=== PATIENT | male | born 1945 | race Caucasian/White ===

== ENCOUNTER 2019-03-21 10:49 | Outpatient (CLI) | payer MEDICARE, OTHER ==
[~2019-03-21] VITALS: Ht 177.8 cm; Wt 90.9 kg
--- NOTE | ~2019-03-21 | HEMODYNAMI ---
PATIENT:MARY PAYAN MEDICAL RECORD: [id number] : 41 LOCATION:D.CAT ADMISSION DATE: 03/21/19 Generatedon:03/21/201913:53 Patient name: MARY PAYAN Patient #: [id number] SSN: [id number] : 1945 Date of study: 03/21/2019 Page: Of Hemodynamic Procedure Report Patient Data Patient Demographics Procedure consent was obtained First Name: MARY Gender: Male Last Name: SCHUYLER : 1945 Middle Initial: W Age: 74 year(s) Patient #: [id number] Race: SSN: [id number] Additional ID: [id number] Contact details Address: [address] [place] [address] State: [place] City: [place] Zip code: [address] Past Medical History Allergies: No known allergies Admission Admission Data Admission Date: 03/21/2019 Admission Time: 10:49 Arrival Date: 03/21/2019 Arrival Time: 0:00 Admit Source: Other Insurance Payor: Medicare [facility] #: [id number] Height (in.): 70.08 BSA: 2.09 (m2) Height (cm.): 178 BMI: 28.72 (kg/m2) Weight (lbs.): 200.62 Weight (kg.): 91 Lab Results Lab Result Date: 03/21/2019 Lab Result Time: 0:00 Biochemistry Name Units Result Min Max BUN mg/dl 19 --(----)*- 7 18 Creatinine mg/dl 1.3 --(---*)-- 0.6 1.3 eGFR ml/min 57 *-(----)-- 90 120 NONAFRICAN CBC Name Units Result Min Max Hemoglobin g/dl 13.4 -*(----)-- 13.5 17.5 Procedure Procedure Types Cath Procedure Diagnostic Procedure [facility] w/Coronaries Sedation Charges Moderate Sedation up to 15 minutes PCI Procedure Coronary Stent Coronary Stent Initial Procedure Description Procedure Date Procedure Date: 03/21/2019 Procedure Start Time: 13:24 Procedure End Time: 13:52 Procedure Staff Name Function Von Love MD Performing Physician Audrey George RT Monitor Keyonna Feldman RT Monitor Robert Longoria RN Nurse Monica Rushing RT Scrub Procedure Data Cath Procedure Fluoroscopy Diagnostic fluoroscopy Total fluoroscopy Time: 4.8 time: 4.8 min min Diagnostic fluoroscopy Total fluoroscopy dose: 862 dose: 862 mGy mGy Contrast Material Contrast Material Type Amount (ml) Isovue 300 118 Entry Location Entry Primary Successful Side Size Upsize Upsize Entry Closure Succes sful Closure Location (Fr) 1 (Fr) 2 (Fr) Remarks Device Remarks Femoral Right 5 Fr 6 Fr Exoseal artery Short Estimated blood loss: 10 ml Diagnostic catheters Device Type Used For End Catheter Placement MULTIPACK JL 4.0 5Fr Left Coronary catheter Angiography MULTIPACK 3DRC 5Fr Right Coronary catheter Angiography MULTIPACK Pigtail 5 Fr LV Angiography catheter Procedure Complications No complications Procedure Medications Medication Administration Route Dosage 0.9% NaCl I.V. 100 ml/hr Oxygen etCO2 Nasal cannula 2 l/min Heparin Flush Bag added to field 2 bags (1000units/500ml NS) Lidocaine 2% added to field 20 Versed I.V. 1 mg Fentanyl I.V. 50 mcg Versed I.V. 1 mg Fentanyl I.V. 50 mcg Heparin Bolus I.V. 5000 units Integrilin (Bolus I.V. 8.5 ml 2mg/ml) Integrilin (Bolus wasted 1.5 ml 2mg/ml) Plavix P.O. 600 mg Hemodynamics Rest BSA: 2.09 (m2) HGB: 13.4 (g/dl) O2 Consumption: Estimated: 234.27 (ml/min) O2 Co nsumption indexed: Estimated:112.09 (ml/min/m) Heart Rate: 63 (bpm) Pressure Samples Time Site Value (mmHg) Purpose Heart Use Rate(bpm) 13:30 LV 113/16,20 Snapshot 75 13:31 AO 110/73(90) Pullback 74 13:31 LV 91/14,8 Pullback 74 Gradients Valve Time Site 1 Site 2 Mean SEP/DFP Peak To Heart Use (mmHg) (sec/min) Peak Rate (mmHg) (bpm) Aortic 13:31 LV AO 0 74 91/14,8 110/73(90) Calculations Valve P-P Mean Valve Index Valve Source Name Gradient Area Flow (cm2) Aortic 0 0 Snapshots Pre Cath Intra NCS Post Cath Vital Signs Time Heart Resp SPO2 etCO2 NIBP (mmHg) Rhythm Pain Sedation Rate (ipm) (%) (mmHg) Status Level (bpm) 13:08:00 62 19 99 0 171/86(125) NSR 0 (11) 10(A) , No pain 13:13:21 64 13 99 0 168/75(138) NSR 0 (11) 10(A) , No pain 13:17:52 72 14 98 0 170/95(152) NSR 0 (11) 10(A) , No pain 13:22:16 76 14 94 35.9 132/76(105) NSR 0 (11) 10(A) , No pain 13:26:36 65 12 95 30.7 144/75(120) NSR 0 (11) 10(A) , No pain 13:30:56 75 14 93 19.4 121/77(97) NSR 0 (11) 9(A) , No pain 13:35:04 73 10 93 26.2 121/80(99) NSR 0 (11) 9(A) , No pain 13:39:24 73 10 94 41.2 121/60(92) NSR 0 (11) 9(A) , No pain 13:43:36 73 11 95 41.2 126/74(94) NSR 0 (11) 10(A) , No pain 13:47:52 73 10 96 27 144/80(111) NSR 0 (11) 10(A) , No pain Medications Time Medication Route Dose Verified Delivered Reason Notes Effectiveness by by 13:20:13 0.9% NaCl I.V. 100 Robert Robert Per physician ml/hr Von Longoria RN RN 13:20:23 Oxygen etCO2 2 Robert Robert for low 02 sats Nasal l/min Von Longoria cannula RN RN 13:20:33 Heparin Flush added 2 Robert Robert used for Bag to bags Von Longoria procedure (1000units/500ml field CHUNG RN NS) 13:20:45 Lidocaine 2% added 20ml Robert Robert for local to vial Von Longoria anesthetic field CHUNG RN 13:21:06 Versed I.V. 1 mg Robert Robert for sedation Von Longoria RN RN 13:21:14 Fentanyl I.V. 50 Robert Robert for sedation mcg Von Longoria RN RN 13:25:40 Versed I.V. 1 mg Robert Robert for sedation Von Longoria RN RN 13:25:46 Fentanyl I.V. 50 Robert Robert for sedation mcg Von Longoria RN RN 13:36:04 Heparin Bolus I.V. 5000 Robert Robert for units Von Longoria anticoagulation RN RN 13:36:22 Integrilin I.V. 8.5 Robert Robert for (Bolus 2mg/ml) ml Von Longoria antiplatelet RN RN therapy 13:36:33 Integrilin wasted 1.5 Robert Robert to sharp's (Bolus 2mg/ml) ml Von Longoria RN RN 13:48:18 Plavix P.O. 600 Robert Robert for mg Von Longoria antiplatelet RN RN therapy Procedure Log Time Note 12:45:48 Informed consent obtained and on chart 12:46:13 Arrival Date: 03/21/2019 12:00:00 AM 12:47:07 Admit Source: Other 12:47:11 Insurance Payor : Medicare 12:48:53 Patient Height : 70.08 inches 12:48:58 Patient Weight : 200.62 lbs 12:49:48 Lab Result : eGFR NONAFRICAN 57 ml/min 12:49:48 Lab Result : Hemoglobin 13.4 g/dl 12:49:48 Lab Result : BUN 19 mg/dl 12:49:48 Lab Result : Creatinine 1.3 mg/dl 12:52:03 Procedure Status Elective Heart Cath (OP). 12:52:39 Patient allergic to No known allergies 12:56:20 Diagnostic Cath Status : Elective 12:56:42 Keyonna Feldman RT(R) (CV) sent for patient. Start room use. 12:56:45 Time tracking: Regular hours (M-F 7:00 - 5:00) 12:56:52 Plan of Care:Hemodynamics will remain stable., Cardiac rhythm will remain stable., Comfort level will be maintained., Respiratory function will remain adequate., Patient/ family verbilizes understanding of procedure., Procedure tolerated without complication., Recovers from procedure without complications.. 12:57:15 ACC Patient presents with Stable Angina CCS Anginal Class 3--Marked limitation of physical activity, angina occurs with ordinary activity.. 12:58:04 H&P Date Dictated: 03/21/2019 H&P Addendum completed by physician on da y of procedure. (MUST COMPLETE FOR ALL OUTPATIENTS), New H&P dictated by physician.. 12:58:07 Pre-procedure instructions explained to patient. 12:58:08 Pre-op teaching completed and patient verbalized understanding. 12:58:13 Family in patients room. 12:58:16 Patient NPO since Midnight. 12:59:41 Patient received from Pre/Post Procedure Room to CCL 1 Alert and oriented. Tansferred to table in Supine position. 12:59:44 Warm blankets applied, and freddie hugger turned on for patient comfort. 12:59:45 Correct patient and procedure confirmed by team. 12:59:48 ECG and BP/O2 sat monitors applied to patient. 13:06:34 Vital chart was started 13:10:40 ACCPatient has been prescribed/administered the following anti-anginal medication within the last 2 weeks: None 13:10:44 Baseline sample Acquired. 13:10:50 Rhythm: sinus rhythm 13:11:07 Full Disclosure recording started 13:11:08 - 13:11:13 Is the patient allergic to Iodine/contrast media? No. 13:11:22 Is patient on blood thinner?No 13:11:26 Patient diabetic? No. 13:11:28 ----Pre-sedation anethsthesia assessment.---- 13:11:32 Previous problem with sedation/anesthesia? No ? 13:11:38 Snore? Yes 13:12:24 Sleep apnea? No 13:12:27 Deviated septum? No 13:12:29 Opens mouth fully? Yes 13:12:30 Sticks out tongue? Yes 13:12:34 Airway obstruction? No ? 13:12:40 Dentures? Yes in tight 13:12:59 Modified Tone's test Radial failed. 13:13:21 Patient pain scale 0/10 ?. 13:13:30 IV patent on arrival in left forearm with 0.9% NaCl at O. 13:13:38 Lab results completed and on chart. 13:14:34 Stress Test: yes; abnormal possible infarct with scarring and ischemia 13:14:41 Right groin area was prepped with chlora-prep and draped in sterile fashion 13:14:44 Alarms reviewed by R. N. 13:14:44 Sharps counted by scrub and verified by R.N. 13:14:52 Use device set Femoral Dx 13:14:55 ACIST Syringe (25728) opened to sterile field. 13:14:55 Bag Decanter (2002S) opened to sterile field. 13:14:56 Medline Cath Pack ([id number]) opened to sterile field. 13:14:58 ACIST Hand Control (57440) opened to sterile field. 13:15:00 ACIST Manifold (53163) opened to sterile field. 13:15:01 DIAGNOSTIC Multipack 5Fr catheter set (GR4670) opened to sterile field. 13:15:02 Tegaderm 4 x 4 (1626W) opened to sterile field. 13:15:06 SHEATH 5FR Bangs (AIA406) opened to sterile field. 13:15:07 EMERALD Guide Wire (015-897) opened to sterile field. 13:19:17 Risk of Mortality: 0.1 13:19:23 Risk of blood transfusion: 0.1 13:19:28 Risk of FELIPE: 0.7 13:19:39 Physician arrived 13:19:40 --------ALL STOP TIME OUT------ 13:19:42 Final Timeout: patient, procedure, and site verified with staff and physician. All members of the team are in agreement. 13:19:44 Right groin site verified by team. 13:19:49 Fire Safety Assessment: A--An alcohol-based skin anteseptic being used preoperatively., C--Open oxygen or nitrous oxide is being used., D--An ESU, laser, or fiber-optic light is being used. 13:19:54 Physical assessment completed. ASA score P 2 - A patient with mild systemic disease as per Von Love MD. 13:20:03 3a) 45-59 Moderately reduced kidney function. 13:20:13 0.9% NaCl 100 ml/hr I.V. was administered by Robert Longoria RN; Per physician; Verbal order read back and verified. 13:20:15 Maximum allowable contrast dose (3.7 X eGFR X 0.75)158 ml. 13:20:20 Sedation plan: IV Moderate Sedation Medication:Versed, Fentanyl 13:20:23 Oxygen 2 l/min etCO2 Nasal cannula was administered by Robert Longoria RN; for low 02 sats; Verbal order read back and verified. 13:20:33 Heparin Flush Bag (1000units/500ml NS) 2 bags added to field was administered by Robert Longoria RN; used for procedure; Verbal order read back and verified. 13:20:35 Zero performed for pressure channel P1 13:20:45 Lidocaine 2% 20ml vial added to field was administered by Robert Longoria RN; for local anesthetic; Verbal order read back and verified. 13:21:06 Versed 1 mg I.V. was administered by Robert Longoria RN; for sedation; Verbal order read back and verified. 13:21:14 Fentanyl 50 mcg I.V. was administered by Robert Longoria RN; for sedation; Verbal order read back and verified. 13:24:38 Procedure started. 13:24:54 Local anesthetic to right femoral artery with Lidocaine 2% by Von Shanks MD.INITIAL ACCESS ONLY 13:25:35 A 5 Fr sheath was inserted into the Right Femoral artery 13:25:40 Versed 1 mg I.V. was administered by Robert Longoria RN; for sedation; Verbal order read back and verified. 13:25:46 Fentanyl 50 mcg I.V. was administered by Robert Longoria RN; for sedation; Verbal order read back and verified. 13:25:59 A MULTIPACK JL 4.0 5Fr catheter was advanced over the wire and used for Left Coronary Angiography. 13:26:35 LCA angiography performed. 13:26:52 Injector settings: Ml/sec: 3, Volume: 6, 13:27:42 Catheter removed. 13:28:10 A MULTIPACK 3DRC 5Fr catheter was advanced over the wire and used for Right Coronary Angiography. 13:28:58 RCA angiography performed. 13:29:02 Injector settings: Ml/sec: 3, Volume: 6, 13:29:29 ACCDominant side:Right 13:29:32 Catheter removed. 13:29:52 A MULTIPACK Pigtail 5 Fr catheter was advanced over the wire and used for LV Angiography. 13:30:29 LV hemodynamics recorded. 13:30:44 LV gram done using REDDY 13:30:49 Injector settings: Ml/sec: 10, Volume: 20, 13:31:27 EF : 55 % 13:31:29 Catheter removed. 13:31:31 Proceeding to intervention. 13:31:52 INFLATOR Merit BasixCompak (RI6832) opened to sterile field. 13:32:01 SHEATH 6FR Bangs (YHE915) opened to sterile field. 13:32:09 WHISPER 300cm guide wire ([id number]) opened to sterile field. 13:32:20 GUIDE 6FR HS I catheter (LA6HSI) opened to sterile field. 13:32:44 Sheath upsized to a 6 Fr Short. 13:32:54 6 Fr hs1 guide catheter was inserted over the wire 13:33:30 Pre PCI Site: [facility] mRCA has 80% stenosis. 13:33:40 whisper wire advanced. 13:36:04 Heparin Bolus 5000 units I.V. was administered by Robert Longoria RN; for anticoagulation; Verbal order read back and verified. 13:36:04 Wire advanced across lesion. 13:36:22 Integrilin (Bolus 2mg/ml) 8.5 ml I.V. was administered by Robert Longoria RN; for antiplatelet therapy; Verbal order read back and verified. 13:36:33 Integrilin (Bolus 2mg/ml) 1.5 ml wasted was administered by Robert Longoria RN; to sharp's; Verbal order read back and verified. 13:38:03 Inflate balloon Inflation number: 1 A EMERGE OTW 2.0 x 20 balloon ([id number]) was prepped and advanced across the Dist RCA , then inflated to 12 KACI for 0:20 (min:sec) . 13:39:03 Balloon removed over the wire. 13:42:59 Place stent Inflation Number: 1 A HEATHER OTW 3.5 x 12 stent ([id number]) was prepped and advanced across the Mid RCA . The stent was deployed at 14 KACI for 0:10 (min:sec) . 13:43:22 Stent catheter was removed intact over wire. 13:43:44 EXOSEAL 6Fr (EX600) opened to sterile field. 13:44:02 ACT drawn and resulted at 216 seconds. (normal therapeutic range 180-24 0 seconds). 13:44:22 Wire removed. 13:44:22 Guide catheter removed. 13:44:37 Sheath removed intact; hemostasis achieved with Exoseal to the Right Femoral artery. 13:44:40 Procedure ended.(Physican Out) 13:45:15 Contrast amount:Isovue 300 118ml. 13:45:19 Maximum allowable dose exceeded? No. 13:45:41 Fluoroscopy time 04.80 minutes. 13:45:50 Fluoroscopy dose: 862 mGy 13:45:50 Flurop Dose total: 862 13:45:58 Dose Area Product 33658 mGy/cm. 13:46:01 Sharps counted by scrub and verified by R.N. 13:46:05 Insertion/operative site no bleeding no hematoma. 13:46:11 Post-op/insertion site Right Femoral artery dressed using a 4 x 4 and Tegaderm. 13:46:16 Post right femoral artery:stable 13:46:19 Post Procedure Pulses reassessed and unchanged 13:46:24 Post-procedure physical assessment completed. ASA score P 2 - A patient with mild systemic disease as per Von Love MD. 13:46:30 Post procedure rhythm: unchanged. 13:46:33 Estimated blood loss: 10 ml 13:46:36 Post procedure instruction explained to patient.Patient verbalizes understanding. 13:46:37 Patient needs reinforcement of post procedure teaching. 13:47:41 Procedure type changed to Cath procedure, Diagnostic procedure, [facility], C w/Coronaries, Sedation Charges, Moderate Sedation up to 15 minutes, PCI procedure, Coronary Stent, Coronary Stent Initial 13:47:46 Procedure and supply charges have been captured, reviewed, submitted an d are correct. 13:48:18 Plavix 600 mg P.O. was administered by Robert Longoria RN; for antiplatelet therapy; Verbal order read back and verified. 13:48:41 Procedure Complication : No complications 13:49:47 Vital chart was stopped 13:49:52 [facility] Findings: MVD- PCI performed (see procedure note) 13:49:57 Operative report dictated upon procedure completion. 13:49:58 See physician's report for complete and final results. 13:50:00 Report given to Pre/Post Procedure Room. 13:50:05 Patient transfered to Pre/Post Procedure Room with Stretcher. 13:51:25 ACC-PCI Only Patient was given prescriptions, or instructed by Von Love MD to start/continue the following medications upon discharge: Plavix 13:52:11 Procedure ended. 13:52:11 Full Disclosure recording stopped 13:52:14 End room use (Document Last) Intervention Summary Intervention Notes Time ActionType Lesion and Equipment Action# Pressure Duration Attributes Used 13:38:03 Inflate Dist RCA EMERGE OTW 1 12 00:20 balloon 2.0 x 20 balloon ([id number]) 13:42:59 Place stent Mid RCA HEATHER OTW 3.5 1 14 00:10 x 12 stent ([id number]) Device Usage Item Name Manufacture Quantity Catalog Number Hospital Part Current M inimal Lot# / Charge Number Stock Stock Serial# Code ACIST Syringe Acist 1 15153 863181 388951 765640 2 0 (84589) Medical Systems Inc Bag Decanter Microtek 1 2002S 819611 04769 993108 5 (2001S) Medical Inc. Medline Cath Medline 1 [id number] 075401 20556 424446 5 Pack ([id number]) ACIST Hand Acist 1 35593 143108 555294 603404 5 Control Medical (71206) Systems Inc ACIST Acist 1 97409 221879 777097 310985 5 Manifold Medical (04658) Systems Inc DIAGNOSTIC Cardinal 1 [id number] 885757 64535 816284 3 0 Multipack 5Fr Health catheter set (HL6341) Tegaderm 4 x 3M 1 1626W 299526 288986 564229 5 4 (1626W) SHEATH 5FR Terumo 1 BXO880 404503 661285 869247 5 Bangs (QVG568) EMERALD Guide Cardinal 1 502-455 765946 703228 470537 5 Wire Health (360-643) MULTIPACK JL Cardinal 1 347927 5 4.0 5Fr Health catheter MULTIPACK Cardinal 1 054010 5 3DRC 5Fr Health catheter MULTIPACK Cardinal 1 951811 5 Pigtail 5 Fr Health catheter INFLATOR Merit 1 AD7738 174153 828289 039769 1 5 [facility] Medical BasixCompak (OK1396) SHEATH 6FR Terumo 1 PIL044 627558 897698 298068 4 0 Bangs (CON673) WHISPER 300cm Hernandez 1 [id number] 603380 553944 084815 5 guide wire Vascular (6120323GO) GUIDE 6FR HS Medtronic 1 LA6HSI 323789 87030 069229 1 I catheter (LA6HSI) EMERGE OTW [place] 1 [id number] 485748 418836 517621 5 [id number] 2.0 x 20 Scientific balloon ([id number]) HEATHER OTW 3.5 Medtronic 1 [id number] 179915 6419123 545621 5 [id number] x 12 stent ([id number]) EXOSEAL 6Fr Cardinal 1 EX600 248328 985085 232070 1 0 (EX600) Health Signature Audit [place] Stage Time Signature Unsigned Intra-Procedure 03/21/2019 Keyonna 1:52:45 PM Gaston RT(R) (CV) Intra-Procedure 03/21/2019 Robert 1:53:20 PM Von CHUNG Intra-Procedure 03/21/2019 Von Lucio 1:53:46 PM Dimitris [facility] [address] [place] [address]
[2019-03-21] MEDS ORDERED: FLOMAX0.4 MG PO (11:05)
[2019-03-21] MEDS ORDERED: OMEPRAZOLE40 MG PO (11:06)
[2019-03-21] MEDS ORDERED: VOLTAREN75 MG PO (11:06)
[2019-03-21] MEDS ORDERED: SYNTHROID150 MCG PO (11:06)
[2019-03-21 11:21] VITALS: BP 170/82; Ht 177.8 cm; Wt 90.9 kg
[2019-03-21 11:47] LABS: BASOPHILS 0.2 % (0-2); EOSINOPHILS 1.5 % (0-7); HEMATOCRIT 38.8 % (42.0-54.0); HEMOGLOBIN 13.4 g/dL (13.5-17.5); IMMATURE GRANULOCYTES 0.2 % (0-5); LYMPHOCYTES 19.6 % (15-50); MCH 30.7 pg (26.0-34.0); MCHC 34.5 g/dL (31.0-37.0); MEAN PLATELET VOLUME 10.2 fL (7.4-10.4); MONOCYTES 8.2 % (2-11); NEUTROPHILS 70.3 % (40-80); PLATELET COUNT 174 10x3/uL (130-400); RBC 4.36 10x6/uL (4.20-6.10); RDW 13.7 % (11.5-14.5); WBC 4.7 10x3/uL (4.8-10.8)
[2019-03-21 11:57] LABS: ANION GAP 12.1 mmol/L (8-16); CALCIUM 8.8 mg/dL (8.5-10.1); CARBON DIOXIDE 27.2 mmol/L (21.0-32.0); CHOL - HDL RATIO 4.7 ratio (2.3-4.9); CREATININE - SERUM 1.3 mg/dL (0.6-1.3); LDL-HDL RATIO 3.2 ratio (1.5-3.5); POTASSIUM - SERUM 4.3 mmol/L (3.5-5.1)
--- NOTE | 2019-03-21 14:15 | NUR ---
R GROIN SOFT, NONTENDER, NO HEMATOMA/BLEEDING. PPP. VSS. AND FAMILY AT BEDSIDE.
[2019-03-21] MEDS ORDERED: PLAVIX75 MG PO (14:22)
--- NOTE | 2019-03-21 14:23 | OP ---
PATIENT NAME: MARY PAYAN MEDICAL RECORD: [id number] :41 LOCATION:D.CAT ADMISSION DATE: SURGEON: NENITA MAHARAJ MD DATE OF OPERATION: 03/21/2019 PROCEDURES: Left heart catheterization, selective coronary angiography, right femoral artery approach. CATHETERS: A 5-Maldivian sheath, 5/4 left and right Jose Ramon, 5/4 pig. The procedure was well tolerated. The patient returned to the remy, sheath removed. ExoSeal device was placed. FINDINGS: Left ventriculography in 30-degree REDDY view, normal wall motion and normal systolic function. CORONARY ANATOMY: LEFT MAIN: Left main is free of disease. LAD: Basically subtotaled in its proximal portion with a ghost filling distally. It also fills well via right to left collaterals. CIRCUMFLEX: Free of disease. RIGHT CORONARY ARTERY: Distally at the PD has a diffuse long 80% stenosis, at its proximal portion has a discrete 90% stenosis. DESCRIPTION OF PROCEDURE: After a 5-Maldivian sheath was exchanged for a 6-Maldivian sheath, a hockey-stick guide catheter provided excellent guide catheter support followed by 300-cm Whisper wire, which was placed across the occluded PD as well as the right coronary down this portion of vessel. PD was addressed with a 2.5 x 20 mm balloon up to 14 atmospheres. It shows a stent like result with no significant residual. Next, the stent deployed was a 3.5 x 12 mm Etoile drug-eluting stent up to 14 atmospheres for 45 second. Final angiography shows excellent resolution of diffuse 80% stenosis distally and discrete proximal stenosis proximally. Additionally by revascularizing the right, we would essentially revascularize the LAD at the same. STERLING flow was 3 throughout the procedure. Plavix was loaded in the lab. TRANSINT:[id number] Voice Confirmation ID: [id number] DOCUMENT ID: [id number] NENITA MAHARAJ MD at 1423 CC: [id number] DICTATION DATE: 03/21/19 135 CHIEF VENDOR QUALITY: 03/21/19 1418 [facility] [address] [place] [address]
[2019-03-21] MEDS ORDERED: BAYER CHEWABLE81 MG PO (14:29)
[2019-03-21] MEDS ORDERED: PRAVASTATIN SOD10 MG PO (14:29)
--- NOTE | 2019-03-21 14:39 | NUR ---
R GROIN CDI, NO BLEEDING OR HEMATOMA. VSS, PPP. AT BEDSIDE.
--- NOTE | 2019-03-21 14:45 | NUR ---
R GROIN SOFT, NO BLEEDING OR HEMATOMA. VSS, PPP. AT BEDSIDE.
--- NOTE | 2019-03-21 15:16 | NUR ---
R GROIN SOFT, NO BLEEDING OR HEMATOMA. PPP. VSS.
--- NOTE | 2019-03-21 15:30 | NUR ---
R GROIN SOFT, NO BLEEDING OR HEMATOMA. PPP. VSS. AT BEDSIDE. PLAVIX AND PRAVASTATIN CALLED IN TO [facility] IN [place]. PT/ INFORMED.
--- NOTE | 2019-03-21 15:45 | NUR ---
R GROIN SOFT, NO BLEEDING OR HEMATOMA. PPP. VSS. AT BEDSIDE. PT RESTING WITH EYES CLOSED, NO COMPLAINTS.
--- NOTE | 2019-03-21 16:02 | NUR ---
R GROIN SOFT, NO BLEEDING/HEMATOMA. VSS. AND DTR AT BEDSIDE.
--- NOTE | 2019-03-21 16:15 | NUR ---
R GROIN SOFT, NO BLEEDING OR HEMATOMA. ELVI ICEWATER WITH NO COMPLAINT. PPP, VSS, CONT TO MONITOR.
--- NOTE | 2019-03-21 16:32 | NUR ---
R GROIN SOFT, NO BLEEDING OR HEMATOMA. PPP. VSS. FAMILY AT BEDSIDE.
--- NOTE | 2019-03-21 16:44 | NUR ---
R GROIN SOFT, NO BLEEDING OR HEMATOMA. PPP. VSS. FAMILY AT BEDSIDE, NO COMPLAINTS.
--- NOTE | 2019-03-21 16:45 | NUR ---
R GROIN SOFT, NO BLEEDING/HEMATOMA. PPP. VSS. URINAL PROVIDED FOR C/O NEEDS TO VOID, NOT YET TIME TO GET OOB.
--- NOTE | 2019-03-21 17:00 | NUR ---
HOB RAISED TO 30*, PT ELVI SANDWICH AND GRAPES. FAMILY AT BEDSIDE. VOIDED 250CC CLEAR YELLOW URINE. R GROIN SOFT, NO BLEEDING/HEMATOMA. PPP. VSS.
--- NOTE | 2019-03-21 17:15 | NUR ---
R GROIN SOFT, NO BLEEDING/HEMATOMA. VSS. PPP. TOLERATING REGULAR DIET. NO COMPLAINTS.
--- NOTE | 2019-03-21 17:40 | NUR ---
AFTER GROIN PRECAUTION INSTRUCTION, PT ASSISTED OOB AND ASSISTED BY TO DRESS. GROIN REMAINS SOFT WITHOUT BLEEDING OR HEMATOMA. ALL DC INSTRUCTIONS REVIEWED, NEW MEDICATIONS REVIEWED. PT DC TO PRIVATE CAR VIA WHEELCHAIR WITH FAMILY.
== END 2019-03-21 17:50 | disposition home or self-care (01) ==
LOC: D.CATH 10:49 → D.CLR 11:00 → D.CATH 13:00
PROVIDERS: ATTEND Internal Medicine Interventional Cardiology
DX: I25.110 Atherosclerotic heart disease of native coronary artery with unstable angina pectoris (principal); R94.30 Abnormal result of cardiovascular function study, unspecified; R06.02 Shortness of breath
CPT/HCPCS: C9600; 93458

== ENCOUNTER 2019-06-28 08:42 | Outpatient (CLI) | payer MEDICARE, OTHER ==
[~2019-06-28] VITALS: Ht 177.8 cm; Wt 96.2 kg
--- NOTE | ~2019-06-28 | HEMODYNAMI ---
PATIENT:MARY PAYAN MEDICAL RECORD: [id number] : 41 LOCATION:D.CAT ADMISSION DATE: 06/28/19 Generatedon:06/28/201912:08 Patient name: MARY PAYAN Patient #: [id number] SSN: : 1945 Date of study: 06/28/2019 Page: Of Hemodynamic Procedure Report Patient Data Patient Demographics Procedure consent was obtained First Name: MARY Gender: Male Last Name: SCHUYLER : 1945 Middle Initial: W Age: 74 year(s) Patient #: [id number] Race: Additional ID: [id number] Contact details [address]: [address] [place] [address] State: [place] City: [place] Zip code: [address] Past Medical History Allergies: No known allergies Admission Admission Data Admission Date: 06/28/2019 Admission Time: 8:42 Arrival Date: 06/28/2019 Arrival Time: 0:00 Admit Source: Other Insurance Payor: Medicare [facility] #: [id number] Height (in.): 70 BSA: 2.14 (m2) Height (cm.): 177.8 BMI: 30.45 (kg/m2) Weight (lbs.): 212.24 Weight (kg.): 96.27 Lab Results Lab Result Date: 06/28/2019 Lab Result Time: 0:00 Biochemistry Name Units Result Min Max BUN mg/dl 20 --(----)*- 7 18 Creatinine mg/dl 1.4 --(----)*- 0.6 1.3 eGFR ml/min 54 *-(----)-- 90 120 NONAFRICAN CBC Name Units Result Min Max Hematocrit % 38.3 *-(----)-- 42 54 Hemoglobin g/dl 13.2 -*(----)-- 13.5 17.5 Procedure Procedure Types Cath Procedure Diagnostic Procedure C [facility] w/Coronaries FFR/IVUS FFR Initial Sedation Charges Moderate Sedation up to 15 minutes PCI Procedure Coronary Stent Coronary Stent Initial Hemochron ACT Test Procedure Description Procedure Date Procedure Date: 06/28/2019 Procedure Start Time: 11:45 Procedure End Time: 12:06 Procedure Staff Name Function Bhavik Camara MD Performing Physician Monica Rushing RT Monitor Rajeev Contreras RT Scrub Claritza Cason RN Nurse Procedure Data Cath Procedure Fluoroscopy Diagnostic fluoroscopy Total fluoroscopy Time: 6.3 time: 6.3 min min Diagnostic fluoroscopy Total fluoroscopy dose: 905 dose: 905 mGy mGy Contrast Material Contrast Material Type Amount (ml) Isovue 370 137 Entry Location Entry Primary Successful Side Size Upsize Upsize Entry Closure Succes sful Closure Location (Fr) 1 (Fr) 2 (Fr) Remarks Device Remarks Femoral Right 5 Fr 6 Fr Exoseal artery Short Estimated blood loss: 10 ml Diagnostic catheters Device Type Used For End Catheter Placement MULTIPACK Pigtail 5 Fr Procedure catheter MULTIPACK JL 4.0 5Fr Procedure catheter MULTIPACK 3DRC 5Fr Procedure catheter Procedure Complications No complications Procedure Medications Medication Administration Route Dosage Oxygen etCO2 Nasal cannula 2 l/min Lidocaine 2% added to field 20 Heparin Flush Bag added to field 2 bags (1000units/500ml NS) 0.9% NaCl I.V. 100 ml/hr Versed I.V. 1 mg Fentanyl I.V. 25 mcg Versed I.V. 0.5 mg Fentanyl I.V. 50 mcg Heparin Bolus I.V. 4000 units Versed I.V. 0.5 mg Fentanyl I.V. 25 mcg Hemodynamics Rest BSA: 2.14 (m2) HGB: 13.2 (g/dl) O2 Consumption: Estimated: 241.63 (ml/min) O2 Co nsumption indexed: Estimated:112.91 (ml/min/m) Heart Rate: 65 (bpm) Snapshots Pre Cath Intra NCS Post Cath Vital Signs Time Heart Resp SPO2 etCO2 NIBP (mmHg) Rhythm Pain Sedation Rate (ipm) (%) (mmHg) Status Level (bpm) 11:29:41 63 20 98 0 163/84(129) NSR 0 (11) 10(A) , No pain 11:33:55 67 17 98 0 144/84(125) NSR 0 (11) 10(A) , No pain 11:38:11 69 23 100 0 162/94(145) NSR 0 (11) 10(A) , No pain 11:42:31 69 31 97 29.3 147/81(121) NSR 0 (11) 10(A) , No pain 11:46:49 64 17 97 0 145/71(126) NSR 0 (11) 9(A) , No pain 11:51:07 69 16 94 0 135/68(115) NSR 0 (11) 9(A) , No pain 11:55:17 72 14 95 34.6 129/76(107) NSR 0 (11) 9(A) , No pain 11:59:25 79 14 94 0 121/74(101) NSR 0 (11) 10(A) , No pain 12:03:36 76 18 94 15.8 124/79(107) NSR 0 (11) 10(A) , No pain Medications Time Medication Route Dose Verified Delivered Reason Notes Effectiveness by by 11:39:43 Oxygen etCO2 2 Bhavik Tonjaie used for Nasal l/min Jax Cason RN procedure cannula 11:39:49 Lidocaine 2% added 20ml Bhavik Bhavik for local to vial Jax Camara MD anesthetic field 11:39:57 Heparin Flush added 2 Bhavik Bhavik used for Bag to bags Jax Camara MD procedure (1000units/500ml field NS) 11:40:06 0.9% NaCl I.V. 100 Bhavik Buffie Per physician ml/hr Jax Cason RN 11:40:17 Versed I.V. 1 mg Bhavik Buffie for sedation Jax Cason RN 11:40:22 Fentanyl I.V. 25 Bhavik Buffie for sedation mcg Jax Cason RN 11:45:14 Versed I.V. 0.5 Bhavik Buffie for sedation mg Jax Cason RN 11:45:18 Fentanyl I.V. 50 Bhavik Buffie for sedation mcg Jax Cason RN 11:52:48 Heparin Bolus I.V. 4000 Bhavik Buffie for verif ied units Jax Cason RN anticoagulation with dr camara 12:00:02 Versed I.V. 0.5 Bhavik Buffie for sedation mg Jax Cason RN 12:00:07 Fentanyl I.V. 25 Bhavik Buffie for sedation mcg Jax Cason RN Procedure Log Time Note 11:22:07 Diagnostic Cath Status : Elective 11:22:23 Admit Source: Other 11:22:27 Procedure Status Elective Heart Cath (OP). 11:22:29 Rajeev Contreras RT(R) sent for patient. Start room use. 11:25:32 Time tracking: Regular hours (M-F 7:00 - 5:00) 11:25:37 Plan of Care:Hemodynamics will remain stable., Cardiac rhythm will remain stable., Comfort level will be maintained., Respiratory function will remain adequate., Patient/ family verbilizes understanding of procedure., Procedure tolerated without complication., Recovers from procedure without complications.. 11:25:42 Patient received from Pre/Post Procedure Room to CCL 1 Alert and oriented. Tansferred to table in Supine position. 11:25:52 Signed procedure consent form obtained from patient. 11:25:53 Warm blankets applied, and freddie hugger turned on for patient comfort. 11:25:54 Correct patient and procedure confirmed by team. 11:25:54 ECG and BP/O2 sat monitors applied to patient. 11:26:05 H&P Date Dictated: 06/27/2019 Within 30 days and on chart.. 11:26:06 Pre-procedure instructions explained to patient. 11:26:06 Pre-op teaching completed and patient verbalized understanding. 11:26:08 Family in waiting room. 11:26:10 Patient NPO since Midnight. 11:26:17 Patient allergic to No known allergies 11:26:20 Is the patient allergic to Iodine/contrast media? No. 11:26:21 Was the patient premedicated? Yes 11:26:26 Alarms reviewed by R. N. 11:26:27 Sharps counted by scrub and verified by R.N. 11:28:21 Dentures? Yes in tight 11:28:23 ----Pre-sedation anethsthesia assessment.---- 11:28:26 Previous problem with sedation/anesthesia? No ? 11:28:27 Snore? Yes 11:28:28 Sleep apnea? No 11:28:30 Deviated septum? No 11:28:31 Opens mouth fully? Yes 11:28:32 Sticks out tongue? Yes 11:28:34 Airway obstruction? No ? 11:28:37 Vital chart was started 11:28:43 Patient diabetic? No. 11:28:55 If diabetic: On Metformin? N/A 11:29:11 Full Disclosure recording started 11:29:18 Pre procedure: right dorsailis pedis pulse 2+ Normal; easily identifiable; not easily obliterated 11:29:22 Patient pain scale 0/10 ?. 11:29:34 IV patent on arrival in left antecubital with 0.9% NaCl at [facility]. 11:30:03 Lab Result : BUN 20 mg/dl 11:30:03 Lab Result : eGFR NONAFRICAN 54 ml/min 11:30:03 Lab Result : Creatinine 1.4 mg/dl 11:30:03 Lab Result : Hemoglobin 13.2 g/dl 11:30:03 Lab Result : Hematocrit 38.3 % 11:30:07 Lab results completed and on chart. 11:30:19 Stress Test: no; N/A ? 11:30:23 Use device set Femoral Dx 11:31:28 Risk of Mortality: 0.1 11:31:31 Risk of blood transfusion: 0.1 11:31:33 Risk of FELIPE: 1.1 11:31:39 Right groin area was prepped with chlora-prep and draped in sterile fashion 11:31:44 ACIST Syringe (69431) opened to sterile field. 11:31:44 Bag Decanter (2002S) opened to sterile field. 11:31:45 Medline Cath Pack ([id number]) opened to sterile field. 11:31:46 ACIST Hand Control (35404) opened to sterile field. 11:31:47 ACIST Manifold (22187) opened to sterile field. 11:31:49 DIAGNOSTIC Multipack 5Fr catheter set (SU1189) opened to sterile field. 11:31:50 SHEATH 5FR Leola (BAV610) opened to sterile field. 11:31:53 EMERALD Guide Wire (502-584) opened to sterile field. 11:32:10 Arrival Date: 06/28/2019 12:00:00 AM 11:32:13 Patient Height : 70 inches 11:35:26 Baseline sample Acquired. 11:35:29 Rhythm: sinus rhythm 11:36:21 Patient Weight : 212.24 lbs 11:36:30 Insurance Payor : Medicare 11:38:43 Zero performed for pressure channel P1 11:39:14 --------ALL STOP TIME OUT------ 11:39:15 Final Timeout: patient, procedure, and site verified with staff and physician. All members of the team are in agreement. 11:39:17 Right groin site verified by team. 11:39:20 Fire Safety Assessment: A--An alcohol-based skin anteseptic being used preoperatively., C--Open oxygen or nitrous oxide is being used., D--An ESU, laser, or fiber-optic light is being used. 11:39:24 Physical assessment completed. ASA score P 2 - A patient with mild systemic disease as per Bhavik Camara MD. 11:39:27 3a) 45-59 Moderately reduced kidney function. 11:39:30 Maximum allowable contrast dose (3.7 X eGFR X 0.75)144 ml. 11:39:34 Sedation plan: IV Moderate Sedation Medication:Versed, Fentanyl 11:39:43 Oxygen 2 l/min etCO2 Nasal cannula was administered by Claritza Cason RN; used for procedure; Verbal order read back and verified. 11:39:49 Lidocaine 2% 20ml vial added to field was administered by Bhavik Camara MD; for local anesthetic; Verbal order read back and verified. 11:39:57 Heparin Flush Bag (1000units/500ml NS) 2 bags added to field was administered by Bhavik Camara MD; used for procedure; Verbal order read back and verified. 11:40:06 0.9% NaCl 100 ml/hr I.V. was administered by Claritza Cason RN; Per physician; Verbal order read back and verified. 11:40:17 Versed 1 mg I.V. was administered by Claritza Cason RN; for sedation; Verbal order read back and verified. 11:40:22 Fentanyl 25 mcg I.V. was administered by Claritza Cason RN; for sedation; Verbal order read back and verified. 11:43:31 Procedure started. 11:45:14 Versed 0.5 mg I.V. was administered by Claritza Cason RN; for sedation; Verbal order read back and verified. 11:45:18 Fentanyl 50 mcg I.V. was administered by Claritza Cason RN; for sedation; Verbal order read back and verified. 11:45:26 Local anesthetic to right femoral artery with Lidocaine 2% by Bhavik Camara MD.INITIAL ACCESS ONLY 11:45:33 A 5 Fr sheath was inserted into the Right Femoral artery 11:45:54 A MULTIPACK Pigtail 5 Fr catheter was advanced over the wire and used for Procedure. 11:45:58 Injector settings: Ml/sec: 5, Volume: 15, 11:46:01 LV gram done using REDDY 11:46:04 EF : 30 % 11:46:18 Catheter removed. 11:46:25 A MULTIPACK JL 4.0 5Fr catheter was advanced over the wire and used for Procedure. 11:46:26 LCA angiography performed. 11:46:41 Catheter removed. 11:47:15 A MULTIPACK 3DRC 5Fr catheter was advanced over the wire and used for Procedure. 11:47:18 RCA angiography performed. 11:47:41 Catheter removed. 11:47:42 Proceeding to intervention. 11:47:45 Use device set [facility] PCI 11:47:52 INFLATOR Merit BasixCompak (JR2693) opened to sterile field. 11:47:58 SHEATH 6FR Leola (OZU958) opened to sterile field. 11:48:20 Paul Verrata Plus pressure wire (57832Z) opened to sterile field. 11:48:40 GUIDE 6FR XB 4.0 catheter ([id number]) opened to sterile field. 11:48:48 Sheath upsized to a 6 Fr Short. 11:48:57 6 Fr XB 4 guide catheter was inserted over the wire 11:49:01 FFR/IFR wire advanced. 11:49:45 Wire advanced across lesion. 11:51:31 mCirc lesion measured at .93 with IFR 11:51:47 FIELDER XT 190cm guidewire ([id number]) opened to sterile field. 11:52:19 FIELDER 190 wire advanced. 11:52:48 Heparin Bolus 4000 units I.V. was administered by Claritza Cason RN; for anticoagulation; verified with dr camara Verbal order read back and verified. 11:53:13 Pre PCI Site: [place] mLAD has 99% stenosis. 11:53:49 Wire redirected to LAD. 11:54:23 Inflate balloon Inflation number: 1 A EUPHORA 2.0 x 30 Balloon ([id number]) was prepped and advanced across the Mid LAD , then inflated to 17 KACI for 0:00 (min:sec) . 11:54:41 Inflation number: 2 The EUPHORA 2.0 x 30 Balloon ([id number]) was reinflated across the Mid LAD , to 21 KACI for 0:00 (min:sec) . 11:55:06 Balloon removed over the wire. 11:56:48 Inflate balloon Inflation number: 1 A NC EUPHORA 2.5 x 15 balloon ([id number]) was prepped and advanced across the Mid LAD1 , then inflated to 23 KACI for 0:00 (min:sec) . 11:56:51 Balloon removed over the wire. 11:58:14 Place stent Inflation Number: 3 A HEATHER RX 2.5 x 38 stent ([id number]) was prepped and advanced across the Mid LAD . The stent was deployed at 13 KACI for 0:00 (min:sec) . 11:58:31 Stent catheter was removed intact over wire. 12:00:00 Place stent Inflation Number: 4 A HEATHER RX 2.5 x 26 stent ([id number]) was prepped and advanced across the Mid LAD . The stent was deployed at 19 KACI for 0:00 (min:sec) . 12:00:02 Versed 0.5 mg I.V. was administered by Claritza Cason RN; for sedation; Verbal order read back and verified. 12:00:07 Fentanyl 25 mcg I.V. was administered by Claritza Cason RN; for sedation; Verbal order read back and verified. 12:00:38 Stent catheter was removed intact over wire. 12:00:39 Wire removed. 12:00:39 Guide catheter removed. 12:00:46 EXOSEAL 6Fr (EX600) opened to sterile field. 12:01:20 Sheath removed intact; hemostasis achieved with Exoseal to the Right Femoral artery. 12:01:28 Procedure ended.(Physican Out) 12:01:42 Fluoroscopy time 06.30 minutes. 12:01:50 Flurop Dose total: 905 12:01:50 Fluoroscopy dose: 905 mGy 12:02:01 Dose Area Product 70186 mGy/cm. 12:02:08 Contrast amount:Isovue 370 137ml. 12:02:30 Maximum allowable dose exceeded? No. 12:02:32 Sharps counted by scrub and verified by R.N. 12:02:37 Post-op/insertion site Right Femoral artery dressed using a 4 x 4 and Tegaderm. 12:02:42 Post right femoral artery:stable, soft, clean and dry 12:03:01 Post Procedure Pulses reassessed and unchanged 12:03:04 Post procedure: right dorsailis pedis pulse 2+ Normal; easily identifiable; not easily obliterated. 12:03:08 Post-procedure physical assessment completed. ASA score P 2 - A patient with mild systemic disease as per Bhavik Camara MD. 12:03:11 Post procedure rhythm: unchanged. 12:03:14 Estimated blood loss: 10 ml 12:03:16 Post procedure instruction explained to patient.Patient verbalizes understanding. 12:03:17 Patient needs reinforcement of post procedure teaching. 12:04:06 Procedure type changed to Cath procedure, Diagnostic procedure, LHC, [facility] w/Coronaries, FFR/IVUS, FFR Initial, Sedation Charges, Moderate Sedation up to 15 minutes, PCI procedure, Coronary Stent, Coronary Stent Initial, Hemochron ACT Test 12:05:06 Procedure and supply charges have been captured, reviewed, submitted and are correct. 12:05:10 Procedure Complication : No complications 12:05:14 [facility] Findings: MVD- PCI performed (see procedure note) 12:05:15 Operative report dictated upon procedure completion. 12:05:16 See physician's report for complete and final results. 12:05:20 Report given to Pre/Post Procedure Room. 12:05:23 Patient transfered to Pre/Post Procedure Room with Stretcher. 12:05:37 ACT drawn and resulted at 269 seconds. (normal therapeutic range 180-240 seconds). 12:06:41 Vital chart was stopped 12:06:43 Procedure ended. 12:06:43 Full Disclosure recording stopped 12:07:01 ACC-PCI Only Patient was given prescriptions, or instructed by Bhavik Camara MD to start/continue the following medications upon discharge: Plavix 12:07:03 End room use (Document Last) 12:07:42 End room use (Document Last) 12:08:38 End room use (Document Last) Intervention Summary Intervention Notes Time ActionType Lesion and Equipment Used Action# Pressure Duration Attributes 11:54:23 Inflate Mid LAD EUPHORA 2.0 x 1 17 00:00 balloon 30 Balloon ([id number]) 11:54:41 Reinflate Mid LAD EUPHORA 2.0 x 2 21 00:00 balloon 30 Balloon ([id number]) 11:56:48 Inflate Mid LAD1 NC EUPHORA 2.5 1 23 00:00 balloon x 15 balloon ([id number]) 11:58:14 Place stent Mid LAD HEATHER RX 2.5 x 3 13 00:00 38 stent ([id number]) 12:00:00 Place stent Mid LAD HEATHER RX 2.5 x 4 19 00:00 26 stent ([id number]) Device Usage Item Name Manufacture Quantity Catalog Hospital Part Current Minimal Lot# / Number Charge Number Stock Stock Serial# Code ACIST Syringe Acist 1 99260 483360 696393 607965 20 (23940) Medical Systems Inc Bag Decanter Microtek 1 897261 34031 815862 5 (2001S) Medical Inc. Medline Cath Medline 1 [id number] 711570 03790 899770 5 Pack ([id number]) ACIST Hand Acist 1 59186 589736 198236 273638 5 Control Medical (05019) Systems Inc ACIST Manifold Acist 1 49937 633695 163745 873294 5 (80149) Medical Systems Inc DIAGNOSTIC Cardinal 1 ZQ7297 261281 74304 659312 30 Multipack 5Fr Health catheter set (NW2175) SHEATH 5FR Terumo 1 MCU456 579613 434258 141674 5 Leola (PVK255) EMERALD Guide Cardinal 1 502-455 768364 510535 334750 5 Wire (502-455) Health MULTIPACK Cardinal 1 263010 5 Pigtail 5 Fr Health catheter MULTIPACK JL Cardinal 1 342249 5 4.0 5Fr Health catheter MULTIPACK 3DRC Cardinal 1 976664 5 5Fr catheter Health INFLATOR Merit Merit 1 LL4842 601779 863769 329258 15 Tab Asia (ZW7530) SHEATH 6FR Terumo 1 VKY884 033090 256383 062988 40 Leola (FCL909) Paul Paul 1 79329M 911183 169522272 409810 5 Verrata Plus pressure wire (44444L) GUIDE 6FR XB Cardinal 1 [id number] 326801 064350 510237 2 4.0 Oh My Green! ([id number]) FIELDER XT Asahi Intecc 1 [id number] 846578 93088 168670 5 190cm guidewire ([id number]) EUPHORA 2.0 x Medtronic 1 [id number] 616527 169001 845245 5 [id number] 30 Balloon ([id number]) NC EUPHORA 2.5 Medtronic 1 [id number] 086947 622098 611161 1 [id number] x 15 balloon ([id number]) HEATHER RX 2.5 x Medtronic 1 [id number] 376014 0837591 957363 5 [id number] 38 stent ([id number]) HEATHER RX 2.5 x Medtronic 1 [id number] 875695 6920749 454881 5 [id number] 26 stent ([id number]) EXOSEAL 6Fr Cardinal 1 EX600 924325 364624 335471 10 (EX600) Health Signature Audit [place] Stage Time Signature Unsigned Intra-Procedure 06/28/2019 Monica Rushing 12:07:42 PM RT(R) Intra-Procedure 06/28/2019 Claritza Cason RN 12:08:38 PM Intra-Procedure 06/28/2019 Bhavik Camara 12:08:54 PM [id number] [place] [address]
--- NOTE | ~2019-06-28 | HEMODYNAMI ---
PATIENT:MARY PAYAN MEDICAL RECORD: [id number] : 41 LOCATION:[facility] D.2116 ADMISSION DATE: 06/28/19 Generatedon:06/29/201914:59 Patient name: MARY PAYAN Patient #: [id number] SSN: [id number] : 1945 Date of study: 06/29/2019 Page: Of Hemodynamic Procedure Report Patient Data Patient Demographics Procedure consent was obtained First Name: MARY Gender: Male Last Name: SCHUYLER : 1945 Middle Initial: W Age: 74 year(s) Patient #: [id number] Race: SSN: [id number] Additional ID: [id number] Contact details Address: [address] [place] [address] State: [place] City: [place] Zip code: [address] Past Medical History Allergies: No known allergies Admission Admission Data Admission Date: 06/28/2019 Admission Time: 8:42 Arrival Date: 06/28/2019 Arrival Time: 0:00 Admit Source: Other Insurance Payor: Medicare Room #: D.2116 [facility] #: [id number] Height (in.): 70 BSA: 2.14 (m2) Height (cm.): 177.8 BMI: 30.45 (kg/m2) Weight (lbs.): 212.24 Weight (kg.): 96.27 Lab Results Lab Result Date: 06/28/2019 Lab Result Time: 0:00 Biochemistry Name Units Result Min Max BUN mg/dl 20 --(----)*- 7 18 Creatinine mg/dl 1.4 --(----)*- 0.6 1.3 eGFR ml/min 54 *-(----)-- 90 120 NONAFRICAN CBC Name Units Result Min Max Hematocrit % 38.3 *-(----)-- 42 54 Hemoglobin g/dl 13.2 -*(----)-- 13.5 17.5 Procedure Procedure Types Cath Procedure Diagnostic Procedure Sedation Charges Moderate Sedation up to 15 minutes PCI Procedure Coronary Stent Coronary Stent Initial Hemochron ACT Test Procedure Description Procedure Date Procedure Date: 06/29/2019 Procedure Start Time: 14:34 Procedure End Time: 14:53 Procedure Staff Name Function Bhavik Camara MD Performing Physician Keyonna Feldman RT Monitor Monica Rushing RT Scrub Gayle Peres RN Nurse Claritza Cason RN Nurse Indication Coronary risk factors Procedure Data Cath Procedure Fluoroscopy Diagnostic fluoroscopy Total fluoroscopy Time: 4.5 time: 4.5 min min Diagnostic fluoroscopy Total fluoroscopy dose: 521 dose: 521 mGy mGy Contrast Material Contrast Material Type Amount (ml) Isovue 300 74 Entry Location Entry Primary Successful Side Size Upsize Upsize Entry Closure Succes sful Closure Location (Fr) 1 (Fr) 2 (Fr) Remarks Device Remarks Femoral Left 6 Fr Exoseal artery Short Estimated blood loss: 10 ml Procedure Complications No complications Procedure Medications Medication Administration Route Dosage Oxygen etCO2 Nasal cannula 2 l/min Heparin Flush Bag added to field 2 bags (1000units/500ml NS) Lidocaine 2% added to field 20 0.9% NaCl I.V. 100 ml/hr Versed I.V. 1 mg Fentanyl I.V. 50 mcg Fentanyl I.V. 50 mcg Versed I.V. 1 mg Heparin Bolus I.V. 4000 units Hemodynamics Rest BSA: 2.14 (m2) HGB: 13.2 (g/dl) O2 Consumption: Estimated: 240.15 (ml/min) O2 Co nsumption indexed: Estimated:112.22 (ml/min/m) Heart Rate: 63 (bpm) Snapshots Pre Cath Intra NCS Post Cath Vital Signs Time Heart Resp SPO2 etCO2 NIBP (mmHg) Rhythm Pain Sedation Rate (ipm) (%) (mmHg) Status Level (bpm) 14:24:50 64 7 98 25.7 161/91(144) NSR 0 (11) 10(A) , No pain 14:29:17 63 12 96 37.1 158/74(123) NSR 0 (11) 10(A) , No pain 14:33:39 61 11 94 0 136/82(116) NSR 0 (11) 10(A) , No pain 14:37:49 61 8 93 0 142/74(119) NSR 0 (11) 10(A) , No pain 14:41:59 61 11 93 0 128/68(103) NSR 0 (11) 10(A) , No pain 14:46:08 64 9 93 15.1 114/62(91) NSR 0 (11) 10(A) , No pain 14:50:14 62 9 42.4 118/75(98) NSR 0 (11) 10(A) , No pain Medications Time Medication Route Dose Verified Delivered Reason Notes Effectiveness by by 14:20:32 Oxygen etCO2 2 Gayle Gayle used for Nasal l/min Peres Peres procedure cannula RN RN 14:20:39 Heparin Flush added 2 Gayle Gayle used for Bag to bags Peres Peres procedure (1000units/500ml field RN RN NS) 14:20:50 Lidocaine 2% added 20ml Gayle Bhavik for local to vial Ja Camara MD anesthetic field CHUNG 14:21:07 0.9% NaCl I.V. 100 Gayle Gayle ml/hr Ja Peres RN, RN 14:31:06 Versed I.V. 1 mg Gayle Gayle for sedation Ja Peres RN RN 14:31:11 Fentanyl I.V. 50 Gayle Gayle for sedation mcg Ja Peres RN RN 14:36:55 Fentanyl I.V. 50 Gayle Gayle for sedation mcg Ja Peres RN RN 14:36:58 Versed I.V. 1 mg Gayle Gyale for sedation Ja Peres RN RN 14:38:37 Heparin Bolus I.V. 4000 Gayle Gayle for verif ied w units Peres Peres anticoagulation eligiorn RN stringed instrument tuner Log Time Note 13:54:54 Diagnostic Cath Status : Urgent 13:54:56 Patient Weight : 212.24 lbs 13:54:56 Patient Height : 70 inches 13:56:52 Indication : Coronary risk factors 13:56:58 Admit Source: Other 13:57:03 Procedure Status Urgent Heart Cath (IP), PCI. 13:57:06 Gayle Peres RN sent for patient. Start room use. 13:57:07 Time tracking: Regular hours (M-F 7:00 - 5:00) 13:57:12 Plan of Care:Hemodynamics will remain stable., Cardiac rhythm will remain stable., Comfort level will be maintained., Respiratory function will remain adequate., Patient/ family verbilizes understanding of procedure., Procedure tolerated without complication., Recovers from procedure without complications.. 14:10:55 Patient received from Med II to [facility] 2 Alert and oriented. Tansferred to table in Supine position. 14:20:32 Oxygen 2 l/min etCO2 Nasal cannula was administered by Gayle Peres RN ; used for procedure; Verbal order read back and verified. 14:20:39 Heparin Flush Bag (1000units/500ml NS) 2 bags added to field was administered by Gayle Peres RN; used for procedure; Verbal order read back and verified. 14:20:50 Lidocaine 2% 20ml vial added to field was administered by Bhavik Camara MD; for local anesthetic; Verbal order read back and verified. 14:21:07 0.9% NaCl 100 ml/hr I.V. was administered by Gayle Peres RN; ; Verbal order read back and verified. 14:23:33 Signed procedure consent form obtained from patient. 14:23:34 Warm blankets applied, and freddie hugger turned on for patient comfort. 14:23:35 Correct patient and procedure confirmed by team. 14:23:36 ECG and BP/O2 sat monitors applied to patient. 14:23:36 Vital chart was started 14:23:37 Baseline sample Acquired. 14:23:46 Rhythm: sinus rhythm 14:23:50 Full Disclosure recording started 14:23:51 - 14:23:59 H&P Date Dictated: 06/29/2019 Within 30 days and on chart.. 14:24:01 Pre-procedure instructions explained to patient. 14:24:01 Pre-op teaching completed and patient verbalized understanding. 14:24:09 Family in patients room. 14:24:13 Patient NPO since Midnight. 14:27:33 Patient allergic to No known allergies 14:28:08 Is the patient allergic to Iodine/contrast media? No. 14:28:11 Was the patient premedicated? Yes 14:28:28 Is patient on blood thinner?Yes 14:28:55 ACC The patient was administered the following blood thiners within the last 24 hours: ACCPlavix 14:28:57 Patient diabetic? No. 14:29:00 ----Pre-sedation anethsthesia assessment.---- 14:29:09 Previous problem with sedation/anesthesia? No ? 14:29:11 Snore? Yes 14:29:19 Sleep apnea? No 14:29:24 Deviated septum? No 14:29:26 Opens mouth fully? Yes 14:29:28 Sticks out tongue? Yes 14:29:37 Airway obstruction? No ? 14:29:48 Dentures? Yes in tight 14:29:54 Pre procedure: left dorsailis pedis pulse 2+ Normal; easily identifiable; not easily obliterated 14:30:09 IV patent on arrival in left hand with 0.9% NaCl at [facility] 14:30:26 Lab results completed and on chart. 14:30:32 Left groin area was prepped with chlora-prep and draped in sterile fashion 14:30:34 Alarms reviewed by R. N. 14:30:35 Sharps counted by scrub and verified by R.N. 14:30:37 Physician arrived 14:30:42 --------ALL STOP TIME OUT------ 14:30:43 Final Timeout: patient, procedure, and site verified with staff and physician. All members of the team are in agreement. 14:30:46 Left groin site verified by team. 14:30:53 Fire Safety Assessment: A--An alcohol-based skin anteseptic being used preoperatively., C--Open oxygen or nitrous oxide is being used., D--An ESU, laser, or fiber-optic light is being used. 14:30:58 Physical assessment completed. ASA score P 2 - A patient with mild systemic disease as per Bhavik Camara MD. 14:31:05 3a) 45-59 Moderately reduced kidney function. 14:31:06 Versed 1 mg I.V. was administered by Gayle Peres RN; for sedation; Verbal order read back and verified. 14:31:11 Fentanyl 50 mcg I.V. was administered by Gayle Peres RN; for sedation ; Verbal order read back and verified. 14:31:22 Maximum allowable contrast dose (3.7 X eGFR X 0.75)144 ml. 14:31:28 Sedation plan: IV Moderate Sedation Medication:Versed, Fentanyl 14:31:48 Use device set TAUTH PCI 14:31:51 INFLATOR Merit BasIsaiaspak (NV7150) opened to sterile field. 14:31:58 SHEATH 6FR Devils Tower (BRR746) opened to sterile field. 14:32:07 Use device set Femoral Dx 14:32:09 EMERALD Guide Wire (502-928) opened to sterile field. 14:32:12 Tegaderm 4 x 4 (1626W) opened to sterile field. 14:32:14 ACIST Manifold (83260) opened to sterile field. 14:32:15 ACIST Hand Control (29045) opened to sterile field. 14:32:18 Medline Cath Pack ([id number]) opened to sterile field. 14:32:19 Bag Decanter (2002S) opened to sterile field. 14:32:20 ACIST Syringe (83881) opened to sterile field. 14:33:49 GUIDE 6FR AR 2.0 catheter (NK3ZH24) opened to sterile field. 14:33:52 Procedure started. 14:34:42 Local anesthetic to left femerol artery with Lidocaine 2% by Bhavik Camara MD.INITIAL ACCESS ONLY 14:34:56 A 6 Fr Short sheath was inserted into the Left Femoral artery 14:35:13 6 Fr ar2 guide catheter was inserted over the wire 14:35:24 [id number] wire advanced. 14:36:55 Fentanyl 50 mcg I.V. was administered by Gayle Peres RN; for sedation ; Verbal order read back and verified. 14:36:58 Versed 1 mg I.V. was administered by Gayle Peres RN; for sedation; Verbal order read back and verified. 14:37:16 Pre PCI Site: [place] mRCA has 100% stenosis. 14:37:30 Wire advanced across lesion. 14:37:44 Inflate balloon Inflation number: 1 A EUPHORA 2.0 x 20 Balloon ([id number]) was prepped and advanced across the Mid RCA , then inflated to 11 KACI for 0:00 (min:sec) . 14:37:53 Balloon removed over the wire. 14:37:59 ACC Pre-intervention STERLING Flow is 3. 14:38:37 Heparin Bolus 4000 units I.V. was administered by Gayle Peres RN; for anticoagulation; verified leandro del valle rn Verbal order read back and verified. 14:38:51 Place stent Inflation Number: 2 A HEATHER RX 2.0 x 22 stent ([id number]) was prepped and advanced across the Mid RCA . The stent was deployed at 11 KACI for 0:00 (min:sec) . 14:39:12 Inflation number: 3 The stent balloon was then re-inflated across the Mid RCA to 11 KACI for 0:00 (min:sec) . 14:39:59 Stent catheter was removed intact over wire. 14:40:59 Place stent Inflation Number: 4 A HEATHER RX 2.0 x 12 stent ([id number]) was prepped and advanced across the Mid RCA . The stent was deployed at 11 KACI for 0:00 (min:sec) . 14:43:07 EXOSEAL 6Fr (EX600) opened to sterile field. 14:43:26 Stent catheter was removed intact over wire. 14:43:26 Wire removed. 14:43:27 Guide catheter removed. 14:43:41 Sheath removed intact; hemostasis achieved with Exoseal to the Left Femoral artery. 14:43:44 Procedure ended.(Physican Out) 14:44:01 Contrast amount:Isovue 300 74ml. 14:44:18 Fluoroscopy time 04.50 minutes. 14:44:30 Flurop Dose total: 521 14:44:30 Fluoroscopy dose: 521 mGy 14:44:39 Dose Area Product 30332 mGy/cm. 14:46:05 Maximum allowable dose exceeded? No. 14:46:06 Sharps counted by scrub and verified by R.N. 14:48:14 Post PCI Site: [place] mRCA has 0% stenosis. 14:48:22 ACC Post-intervention STERLING Flow is 3. 14:48:37 Insertion/operative site no bleeding no hematoma. 14:48:44 Post-op/insertion site Left Femoral artery dressed using a 4 x 4 and Tegaderm. 14:48:49 Post left femerol artery:stable 14:48:52 Post Procedure Pulses reassessed and unchanged 14:48:57 Post-procedure physical assessment completed. ASA score P 2 - A patient with mild systemic disease as per Bhavik Camara MD. 14:49:01 Post procedure rhythm: unchanged. 14:49:05 Estimated blood loss: 10 ml 14:49:06 Post procedure instruction explained to patient.Patient verbalizes understanding. 14:49:07 Patient needs reinforcement of post procedure teaching. 14:50:58 Procedure type changed to Cath procedure, Diagnostic procedure, Sedatio n Charges, Moderate Sedation up to 15 minutes, PCI procedure, Coronary Stent, Coronary Stent Initial, Hemochron ACT Test 14:51:02 Procedure and supply charges have been captured, reviewed, submitted an d are correct. 14:51:39 ACT drawn and resulted at 230 seconds. (normal therapeutic range 180-24 0 seconds). 14:51:54 Procedure Complication : No complications 14:53:08 Vital chart was stopped 14:53:11 [facility] Findings: MVD- PCI performed (see procedure note) 14:53:15 Operative report dictated upon procedure completion. 14:53:16 See physician's report for complete and final results. 14:53:19 Report given to [facility]. 14:53:24 Patient transfered to [facility] with Bed. 14:53:27 Procedure ended. 14:53:27 Full Disclosure recording stopped 14:55:30 ACC-PCI Only Patient was given prescriptions, or instructed by Bhavik Camara MD to start/continue the following medications upon discharge: Plavix 14:55:31 End room use (Document Last) Intervention Summary Intervention Notes Time ActionType Lesion and Equipment Used Action# Pressure Duration Attributes 14:37:44 Inflate Mid RCA EUPHORA 2.0 x 1 11 00:00 balloon 20 Balloon ([id number]) 14:38:51 Place stent Mid RCA HEATHER RX 2.0 x 2 11 00:00 22 stent ([id number]) 14:39:12 Reinflate Mid RCA HEATHER RX 2.0 x 3 11 00:00 stent 22 stent balloon ([id number]) 14:40:59 Place stent Mid RCA HEATHER RX 2.0 x 4 11 00:00 12 stent ([id number]) Device Usage Item Name Manufacture Quantity Catalog Hospital Part [facility] Lot# / Number Charge Number Stock Stock Serial# Code INFLATOR Merit Merit 1 [id number] 324532 675128 15 TalkSession ([id number]) SHEATH 6FR Terumo 1 [id number] 478732 389076 116626 40 [place] (VYP976) EMERALD Guide Cardinal 1 502-455 710348 030387 504310 5 Wire (502-455) [facility] Tegaderm 4 x 4 3M 1 1626W 228099 898651 636509 5 (1626W) ACIST Manifold Acist 1 88804 983057 747498 139776 5 (47341) Medical Systems Inc ACIST Hand Acist 1 84992 995464 547755 389600 5 Control Medical (77579) Systems Inc Medline Cath Medline 1 [id number] 581783 55053 692065 5 Pack ([id number]) Bag Decanter Microtek 1 2001S 126135 72785 142375 5 (2001S) Medical Inc. ACIST Syringe Acist 1 68078 011895 777240 565581 20 (01514) Medical Systems Inc GUIDE 6FR AR Medtronic 1 [id number] 819873 19943 901190 1 2.0 catheter (VO0LN57) EUPHORA 2.0 x Medtronic 1 [id number] 600636 303541 322780 5 [id number] 20 Balloon ([id number]) HEATHER RX 2.0 x Medtronic 1 [id number] 057959 6037668 203386 5 [id number] 22 stent ([id number]) HEATHER RX 2.0 x Medtronic 1 [id number] 136351 9714885 797102 5 [id number] 12 stent ([id number]) EXOSEAL 6Fr Cardinal 1 EX600 842306 666863 282037 10 (EX600) Health Signature Audit Crane Stage Time Signature Unsigned Intra-Procedure 06/29/2019 Keyonna 2:56:41 PM Gaston RT(R) (CV) Intra-Procedure 06/29/2019 Claritza Cason RN 2:59:06 PM Intra-Procedure 06/29/2019 Bhavik Camara 2:59:29 PM Signatures Performing Physician : Signature : Bhavik Camara MD Date : Time : Monitor : Keyonna Signature : Nannemann RT Date : Time : Nurse : Gayle Peres RN Signature : Date : Time : Nurse : Buffie Cason RN Signature : Date : Time : [address] [place] [address]
[~2019-06-28 08:42] MED LIST: BAYER CHEWABLE81 MG PO; FLOMAX0.4 MG PO; OMEPRAZOLE40 MG PO; PLAVIX75 MG PO; PRAVASTATIN SOD10 MG PO; SYNTHROID150 MCG PO; VOLTAREN75 MG PO
[2019-06-28] MEDS ORDERED: FUROSEMIDE20 MG PO (09:25)
[2019-06-28] MEDS ORDERED: K-TAB10 MEQ PO (09:25)
[2019-06-28] MEDS ORDERED: PAXIL20 MG PO (09:25)
[2019-06-28 09:33] VITALS: BP 163/68; BMI 30.4
[2019-06-28 09:46] LABS: BASOPHILS 0.2 % (0-2); EOSINOPHILS 1.5 % (0-7); HEMATOCRIT 38.3 % (42.0-54.0); HEMOGLOBIN 13.2 g/dL (13.5-17.5); IMMATURE GRANULOCYTES 0.2 % (0-5); LYMPHOCYTES 18.6 % (15-50); MCH 29.9 pg (26.0-34.0); MCHC 34.5 g/dL (31.0-37.0); MCV 86.7 fL (80.0-100.0); MEAN PLATELET VOLUME 10.5 fL (7.4-10.4); MONOCYTES 10.4 % (2-11); NEUTROPHILS 69.1 % (40-80); PLATELET COUNT 201 10x3/uL (130-400); RBC 4.42 10x6/uL (4.20-6.10); RDW 12.6 % (11.5-14.5); WBC 4.8 10x3/uL (4.8-10.8)
[2019-06-28 09:54] LABS: ANION GAP 13.7 mmol/L (8-16); CALCIUM 8.9 mg/dL (8.5-10.1); CARBON DIOXIDE 24.4 mmol/L (21.0-32.0); CREATININE - SERUM 1.4 mg/dL (0.6-1.3); POTASSIUM - SERUM 4.1 mmol/L (3.5-5.1)
--- NOTE | 2019-06-28 12:15 | NUR ---
PATIENT ARRIVED TO ROOM 6, PLACED ON CM. VSS ON 2L NC. PHYSICIAN AT BEDSIDE TO UPDATE PATIENT. RIGHT GROIN DRESSING IS CDI, NO S/S OF BLEEDING OR HEMATOMA.
--- NOTE | 2019-06-28 12:30 | NUR ---
PATIENT RESTING, FAMILY ARRIVED AT BEDSIDE. VSS ON 2L NC. RIGHT GROIN DRESSING IS CDI, NO S/S OF BLEEDING OR HEMATOMA. NO C/O PAIN, NUMBNESS, OR TINGLING. WILL CONTINUE TO MONITOR.
--- NOTE | 2019-06-28 13:00 | NUR ---
PHYSICIAN SPOKE WITH FAMILY VIA TELEPHONE TO UPDATE ON PATIENT STATUS. VSS ON 2L NC. RIGHT GROIN DRESSING IS CDI, NO S/S OF BLEEDING OR HEMATOMA. NO C/O PAIN, NUMBNESS, OR TINGLING. NO N/V.
--- NOTE | 2019-06-28 13:30 | NUR ---
PATIENT RESTING, VSS ON 2L NC. FAMILY PRESENT AT BEDSIDE. NO C/O PAIN, NUMBNESS, OR TINGLING. RIGHT GROIN DRESSING IS CDI, NO S/S OF BLEEDING OR HEMATOMA.
--- NOTE | 2019-06-28 14:00 | NUR ---
PATIENT RESTING, VSS ON 1L NC. RIGHT GROIN DRESSING IS CDI, NO S/S OF BLEEDING OR HEMATOMA. NO C/O PAIN, NUMBNESS, OR TINGLING. NO N/V. FAMILY PRESENT AT BEDSIDE.
--- NOTE | 2019-06-28 14:30 | NUR ---
PATIENT INTERMITTENTLY RESTING, VSS ON 1L NC. RIGHT GROIN DRESSING IS CDI,NO S/S OF BLEEDING OR HEMATOMA. NO C/O PAIN, NUMBNESS, OR TINGLING. NO N/V.
--- NOTE | 2019-06-28 15:00 | NUR ---
HEAD OF BED ELEVATED TO 45 DEGREES, RIGHT GROIN DRESSING IS CDI WITH NO S/S OF BLEEDING OR HEMATOMA. NO C/O PAIN, NUMBNESS, OR TINGLING. PATIENT GIVEN ORANGE JUICE AND TURKEY SANDWICH REQUESTED,NO N/V. VSS ON ROOM AIR. FAMILY AT BEDSIDE.
--- NOTE | 2019-06-28 15:30 | NUR ---
HEAD OF BED AT 90 DEGREES. RIGHT GROIN DRESSING IS CDI, NO S/S OF BLEEDING OR HEMATOMA. NO C/O PAIN, NUMBNESS, OR TINGLING. TOLERATING PO FLUIDS AND FOOD, NO N/V. VSS ON ROOM AIR.
[2019-06-28 16:00] VITALS: BP 123/68
--- NOTE | 2019-06-28 16:00 | NUR ---
RIGHT GROIN DRESSING IS CDI, NO S/S OF BLEEDING OR HEMATOMA. NO C/O PAIN, NUMBNESS,OR TINGLING. VSS ON ROOM AIR. FAMILY PRESENT AT BEDSIDE MADE AWARE OF ROOM ASSIGNMENT TO 2115.
--- NOTE | 2019-06-28 16:45 | NUR ---
REPORT CALLED TO NURSE ON MED 2, ALL QUESTIONS ANSWERED. VSS ON ROOM AIR. RIGHT GROIN DRESSING IS CDI, NO S/S OF BLEEDING OR HEMATOMA.
[2019-06-28 18:02] VITALS: BP 123/68; BMI 30.4
--- NOTE | 2019-06-28 19:28 | NUR ---
RECEIVED BEDSIDE REPORT. PATIENT IS ALERT AND ORIENTED, RESTING COMFORTABLY IN BED. RESPIRATIONS ARE EVEN AND UNLABORED. NO S/S OF DISTRESS. NO C/O PAIN. NEEDS MET. CALL LIGHT WITHIN REACH. FAMILY AT BEDSIDE. WILL CPOC.
[2019-06-28 20:00] VITALS: BP 128/66
[2019-06-29] VITALS: BP 109/63
--- NOTE | 2019-06-29 00:12 | NUR ---
PATIENT ALERT AND ORIENTED, RESTING COMFORTABLY IN BED. RESPIRATIONS ARE EVEN AND UNLABORED. NO S/S OF DISTRESS. NO C/O PAIN. CALL LIGHT WITHIN REACH. WILL CPOC.
[2019-06-29 04:00] VITALS: BP 131/72
[2019-06-29 09:17] VITALS: BP 140/72
--- NOTE | 2019-06-29 14:13 | NUR ---
PRE-OPS GIVEN. LEAVING FOR SUPERVISOR CHEMICAL BY BED.
[2019-06-29 14:14] VITALS: BP 149/75
[2019-06-29 14:18] VITALS: Ht 177.8 cm; Wt 96.2 kg
--- NOTE | 2019-06-29 15:16 | NUR ---
BACK FROM VEHICLE TRIMMER. VS WNL. LEFT GROIN STABLE WITHOUT BLEEDING OR HEMATOMA NOTED. WILL MONITOR.
[2019-06-29 17:01] VITALS: BP 118/65
[2019-06-29 20:00] VITALS: BP 143/67
--- NOTE | 2019-06-29 20:00 | NUR ---
WHILE ESCORTING PATIENT OF UNIT FOR DISCHARGE. WE GOT TO THE ELEVATOR. PATIENT COMPLAINED OF DIZZINESS. GOT PATIENT BACK TO ROOM AND PATIENT BEGAN VOMITING. PATIENT BP 74/40. HR 57. ASSISTED PATIENT TO THE BED, OBTAINED EKG. PATIENT C/O OF NAUSEA. SAT PATIENT UP AND PATIENT BEGAN VOMITING. CALLING GUIDE WINDER.
--- NOTE | 2019-06-29 20:04 | NUR ---
RECHECKED BP 166/58.
--- NOTE | 2019-06-29 20:16 | NUR ---
BP RECHECKED 163/64.
[2019-06-30] VITALS: BP 100/63
[2019-06-30 04:00] VITALS: BP 120/60
--- NOTE | 2019-06-30 06:14 | NUR ---
PATIENT HAD NO MORE DIZZNESS OR VOMITING. NO EKG CHANGES AND VITALS REMAINED STABLE THROUGHOUT THE NIGHT. SPOKE WITH DR. HALE PATIENT OK TO GO HOME. WENT OVER DISCHARGE INSTRUCTIONS AGAIN. PRESCRIPTION FOR PLAVIX GIVEN TO . SHAMPOO ASSISTANT RETURNED TO LATHE SCALPER OPERATOR. IV REMOVED LAST NIGHT. PATIENT ESCORTED OFF FLOOR BY DALE.
--- NOTE | 2019-07-04 11:53 | OP ---
PATIENT NAME: MARY PAYAN MEDICAL RECORD: [id number] :41 LOCATION:D.CAT ADMISSION DATE: SURGEON: SHASHI OAKLEY MD DATE OF OPERATION: 06/28/2019 PROCEDURES: 1. PTCA stent LAD. 2. IFR left circumflex. 3. Left heart catheterization. 4. Selective coronary angiography. 5. Left ventriculogram. INDICATION: Unstable angina and coronary artery disease. PROCEDURE IN DETAIL: After informed consent was obtained and after detailed explanation of risks, benefits as well as alternative therapies, the patient elected to proceed with angiogram and angioplasty. The right femoral area was prepped and draped in normal sterile fashion. Right femoral artery was cannulated via modified Seldinger technique with placement of 6-Syrian sheath. All catheters exchanged through this sheath. FINDINGS: Left ventriculogram was performed in standard 30-degree REDDY view, reveals global hypokinesis, ejection fraction is 30%. SELECTIVE CORONARY ANGIOGRAPHY: 1. Left main showed no significant angiographic disease. 2. Left anterior descending has the 99% stenosis in the mid vessel. 3. Left circumflex has a questionable stenosis in the mid distal vessel; however, IFR was normal. 4. Right coronary has 99% stenosis in the distal vessel. PTCA STENT OF THE LAD: Stents used were 2.5 x 38 and 2.5 x 26, both Dieterich stents. Result was 0% residual stenosis. OVERALL IMPRESSION: Successful percutaneous transluminal coronary angioplasty stent of the left anterior descending going from 99% initial stenosis to 0% residual. PLAN: PTCA stent of the RCA in the near future. TRANSINT:[id number] Voice Confirmation ID: [id number] DOCUMENT ID: [id number] SHASHI OAKLEY MD at 1153 CC: [id number] DICTATION DATE: 06/28/19 1206 MICROSOFT INFRASTRUCTURE CONSULTANT: 06/28/19 1439 DEP CLI 06/30/19 [place] [id number]
--- NOTE | 2019-07-04 11:54 | DS ---
PATIENT:MARY MALLORY :41 MEDICAL RECORD: [id number] DISCHARGE SUMMARY ADMISSION DATE: 06/28/19 DISCHARGE DATE: 06/30/19 DISCHARGE DIAGNOSES: 1. Unstable angina. 2. Coronary artery disease. 3. Percutaneous transluminal coronary angioplasty stent right coronary artery and left anterior descending this admission. HOSPITAL COURSE: Mr. Mallory presents with unstable anginal symptomatology, found to have critical disease of the RCA and LAD, underwent successful PTCA stent of above territories, was discharged home with the addition of Plavix to his medical regimen. He will follow up with [facility] in 1 month. TRANSINT:[id number] Voice Confirmation ID: [id number] DOCUMENT ID: [id number] SHASHI OAKLEY MD at 1154 CC: [id number] DICTATION DATE: 06/29/19 1446 SOA INTEGRATION DEVELOPER: 06/30/19 0428 DEP CLI 06/30/[address] [address]
--- NOTE | 2019-07-04 11:54 | OP ---
PATIENT NAME: MARY PAYAN MEDICAL RECORD: [id number] :41 LOCATION:D.CAT ADMISSION DATE: SURGEON: SHASHI OAKLEY MD DATE OF OPERATION: 06/29/2019 PROCEDURES: 1. PTCA stent RCA. 2. Selective coronary angiography. INDICATION: Angina and coronary artery disease. PROCEDURE IN DETAIL: After informed consent was obtained and after a detailed description of the risks, benefits as well as alternative therapies, the patient elected to proceed with angiogram and angioplasty. The right femoral area was prepped and draped in normal sterile fashion. Right femoral artery was cannulated via modified Seldinger technique with placement of 6-Ukrainian sheath. All catheters exchanged through this sheath. FINDINGS: The right coronary has a total occlusion of the PDA. This was traversed with a Fielder wire, ballooned with 2-0 balloon. Stenting with a 2 x 22 and 2 x 12 stent, both Aditya stents. Result was 0% residual stenosis. OVERALL IMPRESSION: Successful PTCA stent of the RCA PDA going from 100% initial stenosis to 0% residual. TRANSINT:[id number] Voice Confirmation ID: [id number] DOCUMENT ID: [id number] SHASHI OAKLEY MD at 1154 CC: [id number] DICTATION DATE: 06/29/19 1447 AUDIO ENGINEER: 06/29/192047 DEP CLI 06/30/[address] [address]
== END 2019-06-30 06:20 | disposition home or self-care (01) ==
LOC: D.CATH 08:42 → D.M2 17:20 → D.CATH 06-30 06:20
PROVIDERS: ATTEND Internal Medicine Interventional Cardiology
DX: I25.110 Atherosclerotic heart disease of native coronary artery with unstable angina pectoris (principal); R06.09 Other forms of dyspnea; I10 Essential (primary) hypertension; E78.5 Hyperlipidemia, unspecified
CPT/HCPCS: 93458; 93571; C9600 ×2